=== PATIENT | male | born 1990 | race Caucasian/White ===

== ENCOUNTER 2020-03-31 11:58 | Emergency (ER) | payer BC ==
--- NOTE | 2020-03-31 13:20 | TELE ---
HPI Do you have fever,cough or shortness of breath?: No - General Reason For Visit: COVID TESTING History Source: Patient Exam Limitations: No Limitations - History of Present Illness 03/31/20 13:18 Patient is a 29-year-old male with history of celiac disease and type 1 diabetes who participated in a virtual urgent care visit for routine COVID testing. He states he is having an upcoming visit with his family and wants to be tested before seeing them. The patient is an emergency medicine resident at [facility] and has had COVID positive contacts but wearing proper PPE. He denies any fevers, chills, cough, body aches, loss of taste or any other symptoms. Review of Systems - Review of Systems Comments:: 03/31/20 13:18 - Review of Systems Able to Perform ROS?: Yes Constitutional: No: Fever, Chills, Loss of Appetite, Night Sweats, Weakness; positive: Routine COVID testing HEENTM: No: Eye Pain, Vision changes, Ear Pain, Throat Pain, Throat Swelling, Mouth Pain, Difficulty Swallowing Respiratory: No: Cough, Shortness of Breath, Wheezing, Sputum Production Cardiac (ROS): No: Chest Pain, Chest Tightness, Palpitations, Irregular Heart Beat, Edema ABD/GI: No: Nausea, Vomiting, Abdominal Pain, Diarrhea : No Dysuria, No Hematuria, No Frequency, No Urgency Musculoskeletal: No: Muscle Pain, Back Pain, Joint Pain, Muscle Weakness, Neck Pain Integumentary: No: Lesions, Rash Neurological: No: Headache, Numbness, Tingling, Weakness, Speech Difficulties *Physical Exam - Physical Exam 03/31/20 13:19 - Physical Exam General Appearance: Nourished, Appropriately Dressed, No Distress HEENT: EOMI, Normal Voice, Hearing Grossly Normal Neck: No Decreased range of motion Respiratory/Chest: Normal chest excursion appreciated, No Accessory Muscle Use Gastrointestinal/Abdominal: No distention Musculoskeletal: Normal Inspection Integumentary: Normal Color, Dry. No Rash Neurologic: typesetters printer II-XII NML intact, Fully Oriented, Alert, Normal Mood/Affect, Normal Response - Medical Decision Making 03/31/20 13:19 Assessment: Patient is a 29-year-old male who participated in a virtual urgent care visit for routine cover testing. The patient states he is completely asymptomatic. Plan: -COVID swab ordered -COVID counseling given, isolation precautions reviewed -Patient understands and agrees with this treatment and plan Discharge Diagnosis at time of Disposition: Counseled about COVID-19 virus infection - Referrals Follow-up Referral(s): Lesley Niño MD [Primary Care Provider] - - Patient Instructions Discharge Instructions: [facility]on[facility] Instructions, [facility] COVID-19 Isolation Protocol Additional Discharge Instructions: You were seen via a telehealth visit and tested for COVID today. You should follow isolation precautions as per [place] guidelines. Thank you for participating in our telehealth medicine program. If you have any worsening symptoms such as high fever, shaking chills, profuse vomiting or any other worsening symptoms you should go to your local emergency department immediately or follow up with your primary care doctor immediately. If you become symptomatic: Take Tylenol 650 mg every 6 hours as needed for fever or pain. You may take Robitussin or other [id number] cough syrup. Follow the dosing instructions on the bottle. Warm tea, honey, and salt water gargles may help your symptoms. Please take precautions and self quarantine for 2 weeks and follow-up with your primary care doctor and the Department of Health. Return to the nearest emergency department for shortness of breath, difficulty breathing, chest pain, or if you have any changes in your symptoms. - Discharge Disposition: HOME Condition at time of Disposition: Stable
== END 2020-03-31 13:20 | disposition home or self-care (01) ==
LOC: JVIRT 11:58
DX: Z03.818 Encounter for observation for suspected exposure to other biological agents ruled out (principal)
CPT/HCPCS: Q3014-GT; U0003

== ENCOUNTER 2021-02-21 07:20 | Emergency (ER) | payer BC ==
[2021-02-21] MEDS ORDERED: CASIRIVIMAB (REGN10933) 600 MG, IMDEVIMAB (REGN10987) 600 MG in SODIUM CHLORIDE 100 ML IVPB ONE (07:30)
[2021-02-21 07:52] VITALS: BMI 23.7
[2021-02-21 08:19] LABS: BASO % 0.5 % (0-2.0); EOS % 3.6 % (0-4.5); HEMATOCRIT 45.2 % (35.4-49); HEMOGLOBIN 16.4 GM/dL (11.7-16.9); LYMPH % 17.7 % (8-40); MCH 30.9 pg (25.7-33.7); MCHC 36.3 g/dl (32.0-35.9); MEAN CELL VOLUME 85.2 fl (80-96); MONO % 22.2 % (3.8-10.2); PLATELET COUNT 175 10^3/uL (134-434); WHITE BLOOD COUNT 4.4 K/mm3 (4.0-10.0)
[2021-02-21 10:23] VITALS: BP 128/71; PULSE 68; TEMP 98.4
[2021-02-21 10:44] LABS: ALBUMIN 3.9 g/dl (3.4-5.0); BLOOD UREA NITROGEN 30.3 mg/dL (7-18); CALCIUM 8.6 mg/dL (8.5-10.1)
[2021-02-21 10:47] LABS: CREATININE 0.9 mg/dL (0.55-1.3)
[2021-02-21 10:49] LABS: BILIRUBIN,TOTAL 0.5 mg/dL (0.2-1); TOT PROT 7.3 g/dl (6.4-8.2)
[2021-02-21 11:19] LABS: ANISOCYTOSIS 1+; MACROCYTOSIS 0; PLATELET ESTIMATE NORMAL
== END 2021-02-21 10:52 | disposition home or self-care (01) ==
LOC: JCOVINFU 07:20 → JER 07:20 → JCOVINFU 10:52
DX: U07.1 COVID-19 (principal)
CPT/HCPCS: 36415; 80053; 83036; 85025; 85027; 99284-25; M0243; Q0243

== ENCOUNTER 2021-05-06 17:04 | Emergency (ER) | payer OTHER, BC ==
[2021-05-06 17:12] VITALS: BP 113/65; PULSE 64; TEMP 98.2; BMI 23.0
[2021-05-06 18:27] LABS: BASO % 0.9 % (0-2.0); EOS % 2.4 % (0-4.5); HEMOGLOBIN 16.3 GM/dL (11.7-16.9); LYMPH % 22.7 % (8-40); MCHC 35.5 g/dl (32.0-35.9); MEAN CELL VOLUME 84.7 fl (80-96); MEAN PLT VOLUME 9.7 fl (7.5-11.1); MONO % 9.4 % (3.8-10.2); NEUT % 64.6 % (42.8-82.8); PLATELET COUNT 193 10^3/uL (134-434); RBC 5.43 M/mm3 (4.00-5.60); RDW 13.4 % (11.9-15.9); WHITE BLOOD COUNT 6.5 K/mm3 (4.0-10.0)
[2021-05-06 18:58] LABS: ALBUMIN 3.8 g/dl (3.4-5.0); BLOOD UREA NITROGEN 30.8 mg/dL (7-18); CALCIUM 9.3 mg/dL (8.5-10.1)
[2021-05-06 19:02] LABS: CREATININE 0.8 mg/dL (0.55-1.3)
[2021-05-06 19:03] LABS: BILIRUBIN,TOTAL 0.6 mg/dL (0.2-1); TOT PROT 7.5 g/dl (6.4-8.2)
[2021-05-06 22:48] LABS: HIV INTERPRETATION NEGATIVE (NEGATIVE)
== END 2021-05-06 19:00 | disposition home or self-care (01) ==
LOC: JERFT 17:04
DX: Z77.21 Contact with and (suspected) exposure to potentially hazardous body fluids (principal)
CPT/HCPCS: 36415; 80053; 85025; 86704; 86706; 86803; 87340; 87389; 87517; 99283-25